=== PATIENT | female | born 2000 | race Caucasian/White ===

== ENCOUNTER 2019-06-07 12:38 | Emergency (ER) | payer BC ==
[2019-06-07 13:10] VITALS: BP 110/72
--- NOTE | 2019-06-07 13:24 | UC ---
Throat Pain/Nasal Omer HPI - HPI Summary HPI Summary: 19-year-old woman comes in with a chief complaint of sore throat. Started about 3 days ago. She did have a fever of 100.6 this morning. She took acetaminophen which helped the fever and helped a sore throat. No complaint of shortness of breath. Throat hurts worse when she swallows. - History of Current Complaint Chief Complaint: UCRespiratory Stated Complaint: THROAT COMPLAINT Time Seen by Provider: 06/07/19 13:03 Hx Last Menstrual Period: 05/15/19 Pain Intensity: 7 - Allergies/Home Medications Allergies/Adverse Reactions: Allergies Allergy/AdvReac Type Severity Reaction Status Date / Time Penicillins Allergy lightheaded Verified 06/07/19 13:03 ness Home Medications: Home Medications Acetaminophen [Acetaminophen Extra Strength] 1,000 mg PO ONCE PRN 06/07/19 [ History Confirmed 06/07/19] PMH/Surg Hx/FS Hx/Imm Hx Previously Healthy: Yes - Surgical History Surgical History: None - Family History Known Family History: Positive: Non-Contributory - Social History Alcohol Use: Occasionally Substance Use Type: None Smoking Status (MU): Never Smoked Tobacco Review of Systems All Other Systems Reviewed And Are Negative: Yes Constitutional: Positive: Fever Skin: Positive: Negative Eyes: Positive: Negative ENT: Positive: Sore Throat, Nasal Discharge Respiratory: Positive: Negative Cardiovascular: Positive: Negative Gastrointestinal: Positive: Negative Motor: Positive: Negative Neurovascular: Positive: Negative Musculoskeletal: Positive: Negative Neurological: Positive: Negative Psychological: Positive: Negative Is Patient Immunocompromised?: No Physical Exam Triage Information Reviewed: Yes Appearance: Well-Appearing, No Pain Distress, Well-Nourished Vital Signs: Initial Vital Signs Temp 99.6 F 06/07/19 13:05 Pulse 80 06/07/19 13:05 Resp 20 06/07/19 13:05 BP 110/72 06/07/19 13:05 Pulse Ox 99 06/07/19 13:05 Vital Signs Reviewed: Yes Eye Exam: Normal Eyes: Positive: Conjunctiva Clear ENT: Positive: Pharyngeal erythema, Nasal congestion, Nasal drainage, Tonsillar swelling, Tonsillar exudate, Uvula midline. Negative: Muffled voice, Hoarse voice Neck: Positive: Supple Respiratory: Positive: Lungs clear, Normal breath sounds, No respiratory distress Cardiovascular: Positive: RRR Musculoskeletal: Positive: Strength Intact, ROM Intact Neurological: Positive: Alert Psychological: Positive: Age Appropriate Behavior Skin Exam: Normal Throat Pain/Nasal Course/Dx - Course Course Of Treatment: DISCUSSED VIRAL VERSES BACTERIAL INFECTION AND THE ROLE OF ANTIBIOTICS. PATIENT PREFERS TO BE ON ANTIBIOTICS AT THIS TIME. - Differential Dx/Diagnosis Provider Diagnosis: Tonsillitis Discharge ED - Sign-Out/Discharge Documenting (check all that apply): Patient Departure All imaging exams completed and their final reports reviewed: No Studies - Discharge Plan Condition: Stable Disposition: HOME Prescriptions: Cephalexin CAP* [Keflex CAP*] 500 mg PO BID #20 cap Patient Education Materials: Tonsillitis (ED) Referrals: [facility] [Outside] Additional Instructions: FOLLOW UP WITH YOUR DOCTOR IF NOT COMPLETELY IMPROVED. GET REEVALUATED SOONER IF WORSE OR ANY QUESTIONS OR CONCERNS. - Billing Disposition and Condition Condition: STABLE Disposition: Home
== END 2019-06-07 13:35 | disposition home or self-care (01) ==
LOC: UCCORT 12:38
DX: J03.90 Acute tonsillitis, unspecified (principal); Z88.0 Allergy status to penicillin
CPT/HCPCS: 87651; 99202; G0463

== ENCOUNTER 2019-06-09 17:33 | Emergency (ER) | payer BC ==
[2019-06-09 18:10] VITALS: BP 100/65
[2019-06-09] MEDS ORDERED: Ibuprofen TAB* 600 MG PO ONE (18:24)
--- NOTE | 2019-06-09 18:42 | UC ---
Throat Pain/Nasal Omer HPI - HPI Summary HPI Summary: 19-year-old female comes in with a chief complaint of sore throat. Patient 5 more days ago started with sore throat. Was diagnosed with tonsillitis and started on Keflex 2 days ago. Patient reports that some of her upper respiratory tract infection symptoms have improved her throat still giving her about the same amount of pain. Hurts when she swallows. She's tried acetaminophen. She also has some throat lozenges and Chloraseptic spray which are not helping very much. No fevers. She is able swallow any food or drink water and no complaint of any respiratory distress. She is somewhat fatigued. - History of Current Complaint Chief Complaint: UCRespiratory Stated Complaint: RECHECK-ST Time Seen by Provider: 06/09/19 18:14 Hx Last Menstrual Period: 05/15/19 Pain Intensity: 9 - Allergies/Home Medications Allergies/Adverse Reactions: Allergies Allergy/AdvReac Type Severity Reaction Status Date / Time Penicillins Allergy lightheaded Verified 06/09/19 18:07 ness PMH/Surg Hx/FS Hx/Imm Hx Previously Healthy: Yes - Surgical History Surgical History: None - Family History Known Family History: Positive: Non-Contributory - Social History Alcohol Use: None Substance Use Type: None Smoking Status (MU): Never Smoked Tobacco Review of Systems All Other Systems Reviewed And Are Negative: Yes Constitutional: Positive: Other - SEE HPI Skin: Positive: Negative Eyes: Positive: Negative ENT: Positive: Sore Throat, Nasal Discharge, Sinus Congestion Respiratory: Positive: Negative Cardiovascular: Positive: Negative Gastrointestinal: Positive: Negative Motor: Positive: Decreased ROM Neurovascular: Positive: Negative Musculoskeletal: Positive: Negative Neurological: Positive: Negative Psychological: Positive: Negative Is Patient Immunocompromised?: No Physical Exam Appearance: Well-Appearing, No Pain Distress, Well-Nourished Vital Signs: Initial Vital Signs Temp 99 F 06/09/19 18:07 Pulse 94 06/09/19 18:07 Resp 16 06/09/19 18:07 BP 100/65 06/09/19 18:07 Pulse Ox 100 06/09/19 18:07 Vital Signs Reviewed: Yes Eye Exam: Normal Eyes: Positive: Conjunctiva Clear ENT: Positive: Pharyngeal erythema, TMs normal, Tonsillar swelling - LEFT, Uvula midline, Other - Oral pharynx is open. Voice is normal. I do not see evidence for peritonsillar abscess at this time. Posterior pharynx is symmetric.. Negative: Muffled voice, Hoarse voice Neck: Positive: Supple Respiratory: Positive: Lungs clear, Normal breath sounds, No respiratory distress Cardiovascular: Positive: RRR Musculoskeletal: Positive: Strength Intact, ROM Intact Neurological: Positive: Alert Psychological: Positive: Age Appropriate Behavior Skin Exam: Normal Throat Pain/Nasal Course/Dx - Course Course Of Treatment: Rapid strep was negative. doing a throat culture. We discussed the possible causes to include viral cause mononucleosis or abscess. She'll continue on her present dosing of antibiotics although with Keflex you can increase the dose patient did not want to cause she feels it makes her nauseous. In clinic we gave her ibuprofen and I recommended adding acetaminophen if necessary. Also recommended getting anesthetic cough drops. We discussed the signs and symptoms of abscess and mononucleosis so that if she did not improve her got worse she knows to get reevaluated again. - Differential Dx/Diagnosis Provider Diagnosis: Sore throat, Tonsillitis Discharge ED - Sign-Out/Discharge Documenting (check all that apply): Patient Departure All imaging exams completed and their final reports reviewed: No Studies - Discharge Plan Condition: Stable Disposition: HOME Patient Education Materials: Pharyngitis (ED), Tonsillitis (ED) Referrals: [facility] [Outside] Additional Instructions: FOLLOW UP WITH YOUR DOCTOR IF NOT COMPLETELY IMPROVED. GET REEVALUATED SOONER IF WORSE OR ANY QUESTIONS OR CONCERNS. - Billing Disposition and Condition Condition: STABLE Disposition: Home
== END 2019-06-09 18:59 | disposition home or self-care (01) ==
LOC: UCCORT 17:33
DX: J03.90 Acute tonsillitis, unspecified (principal); Z88.0 Allergy status to penicillin
CPT/HCPCS: 87070; 87651; 99212; A9270-GY; G0463

== ENCOUNTER 2019-06-11 12:29 | Emergency (ER) | payer BC | END 2019-06-11 14:11 | disposition left against medical advice (07) | LOC: UCCORT 12:29 | DX: J02.9 Acute pharyngitis, unspecified (principal); Z53.21 Procedure and treatment not carried out due to patient leaving prior to being seen by health care provider ==